=== PATIENT | female | born 2000 | race Caucasian/White ===

== ENCOUNTER 2021-11-14 15:20 | Outpatient (CLI) | payer BC, SELFPAY | END 2021-11-14 15:21 | disposition home or self-care (01) | LOC: AMB 11-26 08:23 | PROVIDERS: Visit Provider Student in an Organized Health Care Education/Training Program | DX: R53.1 Weakness (principal); R42 Dizziness and giddiness | CPT/HCPCS: A0425; A0427 ==

== ENCOUNTER 2021-11-14 15:40 | Emergency (ER) | payer BC, SELFPAY ==
[2021-11-14 15:55] VITALS: PULSE 77; RESP 18; TEMP 36.2; O2SAT 99; BMI 19.9
--- NOTE | 2021-11-14 16:23 | ED.GENADULT ---
HPI - General Adult General Time Seen by Provider: 16:24 Date Seen: 11/14/21 Chief complaint: Syncope/Fainted Stated complaint: Weakness Time Seen by Provider: 11/14/21 16:07 Source: patient Mode of arrival: EMS History of Present Illness HPI narrative: Alba is a 21-year-old female past medical history includes PCOS currently on oral control presents emerged department via EMS with a syncopal episode. Patient is from [place] and goes to [facility], she was unloading her stuff from storage into the door for about 2 hours, she was pushing a car when she got tunnel vision and felt very warm diaphoretic and shaky, she had to sit down. She was able to get to security she feels that she did not pass but almost did. Security called EMS and she was brought to the emergency department. She is very wobbly when she would get up and lightheaded. Patient states this happened once before about 4 years ago, he thought it was due to low iron, and low hemoglobin. They could not figure out why she had a low hemoglobin. Patient's last menstrual period was about 4 months ago, she did have heavier periods in the past. She denies any chest pain or shortness breath prior to the incident, she denies any recent illness, no nausea vomiting, abdominal pain or diarrhea. She denies any urinary complaints. She denies any pain at this time. She still feels slightly lightheaded, but she has not had any headaches, visual changes, focal weakness or numbness. No history of any cardiac problems in the family. no alcohol, smoking or illicit drug use. Patient feels slightly better at this time. Related Data Home Medications Medication Instructions Recorded Confirmed drospirenone 3 mg-ethinyl tab 11/14/21 estradiol 0.03 mg tablet (Ocella) sertraline 25 mg tablet mg 11/14/21 Allergies Allergy/AdvReac Type Severity Reaction Status Date / Time No Known Drug Allergies Allergy Verified 11/14/21 15:58 Review of Systems Status of ROS: Reports: 10 or more systems reviewed and unremarkable except as noted in History and below [facility] Social History Smoking Status: Never smoker Do you use any of these nicotine containing products: None Second hand tobacco smoke exposure: No How often do you have a drink containing alcohol: never How often do you have six or more drinks on one occasion: Never AUDIT-C Alcohol total score: 0 Non-prescribed substance use: denies use service: No Exam Narrative: Exam Narrative: General: No obvious distress sitting comfortably, she is nontoxic in appearance HEENT: Tympanic membranes within normal limits bilaterally oropharynx clear and moist, pupils equal round reactive to light Neck: Supple, full range of motion, no adenopathy Heart: Normal sinus rhythm, S1-S2 Lungs: Clear to auscultation bilaterally Abdomen: Soft nontender, bowel sounds positive Muscle skeletal: +5 strength in her upper and lower extremities Neuro: Alert awake and oriented x3, cranial nerves 2-12 grossly intact Psych: Mood and affect normal Const: Vital Signs, click to edit/add: Vital Signs - 24 hr 11/14/21 15:55 Temperature 97.1 F L Pulse Rate [Left P ulse Oximeter] 77 Respiratory Rate 18 Pulse Oximetry 99 Oxygen Delivery Me thod Room Air Course Course Hospital Course: 4:00 PM: AIDET performed. vitals are normal. Workup will include EKG, orthostatic blood pressure, will obtain a urinalysis, urine test, CBC, CMP, would like to give patient 0.9 normal saline bolus but she states she does not do well with IVs, she was just at drink orally. Vital Signs Vital signs: Initial Vital Signs Temperature 97.1 F L 11/14/21 15:55 Temperature Source Temporal Artery Scan 11/14/21 15:55 Pulse Rate 77 11/14/21 15:55 Respiratory Rate 18 11/14/21 15:55 Pulse Oximetry 99 11/14/21 15:55 Oxygen Delivery Method 11/14/21 15:55 Vital Signs Temperature 97.1 F L 11/14/21 15:55 Pulse Rate 77 11/14/21 15:55 Respiratory Rate 18 11/14/21 15:55 Pulse Oximetry 99 11/14/21 15:55 Oxygen Delivery Method 11/14/21 15:55 Temperature 97.1 F L 11/14/21 15:55 Pulse Rate 77 11/14/21 15:55 Respiratory Rate 18 11/14/21 15:55 Pulse Oximetry 99 11/14/21 15:55 Oxygen Delivery Method 11/14/21 15:55 Medical Decision Making Lab Data Labs: Lab Results 11/14/21 11/14/21 11/14/21 Range/Units 16:47 16:47 17:00 WBC 7.42 (4.50-11.00) K/uL RBC 4.76 (4.00-5.20) m/uL Hgb 13.1 (12.0-16.0) gm/dL Hct 40.5 (33.0-51.0) % MCV 85 (80-100) fL MCH 28 (26-34) pg MCHC 32 (32-36) gm/dL RDW Coeff of Stephanie 13.8 (11.5-15.5) % Plt Count 334 (140-440) K/uL Neut % (Auto) 56.5 (42.0-72.0) % Lymph % (Auto) 36.3 (20-44) % [place] % (Auto) 5.3 (0.0-11.0) % Eos % (Auto) 1.6 (0.0-7.0) % Baso % (Auto) 0.3 (0.0-3.0) % Neut # (Auto) 4.20 (1.7-7.0) K/uL Lymph # (Auto) 2.69 (0.90-2.90) K/uL [place] # (Auto) 0.40 (0.00-0.90) K/UL Eos # (Auto) 0.12 (0.00-0.50) K/uL Baso # (Auto) 0.02 (0.00-0.30) K/uL Abs Immat Gran (auto) 0.00 (0.00-0.30) K/uL Sodium 139 (135-149) mmol/L Potassium 4.0 (3.6-5.1) mmol/L Chloride 106 (96-114) mmol/L Carbon Dioxide 24 (20-32) mmol/L BUN 15 (5-24) mg/dL Creatinine 0.7 (0.5-1.5) mg/dL Estimated Creat Clear 123.93 Estimated GFR 127 ml/min Glucose 134 H (60-115) mg/dL Calcium 9.1 (8.4-10.6) mg/dL Total Bilirubin 0.2 (0.1-1.5) mg/dL AST 19 (12-35) U/L ALT 10 (4-35) U/L Alkaline Phosphatase 66 (40-150) U/L Total Protein 7.3 (6.0-8.3) g/dL Albumin 4.0 (3.3-5.0) g/dL Urine Color Yellow (Yellow) Urine Appearance Clear (Clear) Urine pH 6.0 (5.0-8.5) Ur Specific [place] >= 1.030 (1.000-1.030) Urine Protein Trace A (Negative) Urine Glucose (UA) Negative (Negative) Urine Ketones Negative (Negative) Urine Blood Negative (Negative) Urine Nitrite Negative (Negative) Urine Bilirubin Negative (Negative) Urine Urobilinogen 0.2 (0.2-1.0) Ur Leukocyte Esterase Negative (Negative) Urine RBC 0-2 (0-2) Urine WBC 0-2 (0-5) Ur Squamous Epith Cells Few (None-Few) Urine Bacteria None (None) Urine HCG, Qual Negative (Negative) Discharge Plan Discharge Clinical Impression: Pre-syncope, History of iron deficiency anemia Patient Disposition: Home, Self-Care Condition: Improved Instructions: Near Syncope (ED) Additional Instructions: To follow up with primary care provider in the next 5-7 days. To continue with keeping hydrated during this heat, return if worsening symptoms. Activity Level: No strenuous activity Prescriptions: No Action sertraline 25 mg tablet drospirenone-ethinyl estradiol [Ocella] 3-0.03 mg tablet Stand Alone Forms: [employer] Info Instructions
[2021-11-14 16:53] LABS: Basophils Absolute Auto 0.02 K/uL (0.00-0.30); Basophils Percent Auto 0.3 % (0.0-3.0); Eosinophils Absolute Auto 0.12 K/uL (0.00-0.50); Eosinophils Percent Auto 1.6 % (0.0-7.0); Hematocrit 40.5 % (33.0-51.0); Hemoglobin* 13.1 gm/dL (12.0-16.0); Lymphocytes Absolute Auto 2.69 K/uL (0.90-2.90); Lymphocytes Percent Auto 36.3 % (20-44); Mean Corpuscular HGB Conc 32 gm/dL (32-36); Mean Corpuscular Hemoglobin 28 pg (26-34); Mean Corpuscular Volume 85 fL (80-100); Monocytes Percent Auto 5.3 % (0.0-11.0); Neutrophils Percent Auto 56.5 % (42.0-72.0); Platelet Count* 334 K/uL (140-440); RDW Coefficient of Variation % 13.8 % (11.5-15.5); Red Blood Count 4.76 m/uL (4.00-5.20); White Blood Count* 7.42 K/uL (4.50-11.00)
[2021-11-14 16:54] LABS: Slide Review Reflex No
[2021-11-14 17:06] LABS: Chloride* 106 mmol/L (96-114); Sodium* 139 mmol/L (135-149)
[2021-11-14 17:08] LABS: Creatinine* 0.7 mg/dL (0.5-1.5); Est. Creatinine Clearance* 123.93; Estimated Glomerular Filt Rate 127 ml/min
[2021-11-14 17:09] LABS: Alanine Aminotransferase* 10 U/L (4-35); Alkaline Phosphatase* 66 U/L (40-150); Aspartate Amino Transferase* 19 U/L (12-35); Bilirubin Total* 0.2 mg/dL (0.1-1.5); Blood Urea Nitrogen* 15 mg/dL (5-24); Calcium* 9.1 mg/dL (8.4-10.6); Carbon Dioxide* 24 mmol/L (20-32); Glucose* 134 mg/dL (60-115); Total Protein* 7.3 g/dL (6.0-8.3)
[2021-11-14 17:11] LABS: Appearance Urine Clear (Clear); Bilirubin Urine Negative (Negative); Blood Urine Negative (Negative); Color Urine Yellow (Yellow); Glucose Urine Negative (Negative); Ketones Urine Negative (Negative); Leukocyte Esterase Urine Negative (Negative); Nitrite Urine Negative (Negative); Protein Urine Trace (Negative); Specific Gravity Urine >= 1.030 (1.000-1.030); Urobilinogen Urine 0.2 (0.2-1.0)
[2021-11-14 17:44] LABS: RBC Urine 0-2 (0-2); Squamous Epithelial Cell Urine Few (None-Few); WBC Urine 0-2 (0-5)
[2021-11-14 17:55] LABS: Ur HCG Qualitative* Negative (Negative)
== END 2021-11-14 18:06 | disposition home or self-care (01) ==
PROVIDERS: Emergency Provider Student in an Organized Health Care Education/Training Program
DX: R55 Syncope and collapse (principal)
CPT/HCPCS: 36415; 80053; 81003; 81015; 81025; 85025; 93005; 99283

== ENCOUNTER 2021-12-20 10:20 | Outpatient (CLI) | payer BC, SELFPAY ==
[2021-12-20 14:54] LABS: Chlamydia DNA Amplified* NOT DETECTED (No Detected); GC DNA Amplified* NOT DETECTED (No Detected)
== END 2021-12-20 10:21 | disposition home or self-care (01) ==
LOC: NFLDREF 10:20
PROVIDERS: Visit Provider Registered Nurse
DX: Z01.419 Encounter for gynecological examination (general) (routine) without abnormal findings (principal); Z11.3 Encounter for screening for infections with a predominantly sexual mode of transmission
CPT/HCPCS: 87491; 87591

== ENCOUNTER 2022-06-25 15:44 | Outpatient (CLI) | payer BC, SELFPAY ==
[2022-06-25 18:07] LABS: Chlamydia DNA Amplified* NOT DETECTED (No Detected); GC DNA Amplified* NOT DETECTED (No Detected)
== END 2022-06-25 15:45 | disposition home or self-care (01) ==
LOC: NFLDREF 15:44
PROVIDERS: Visit Provider Registered Nurse
DX: Z11.3 Encounter for screening for infections with a predominantly sexual mode of transmission (principal)
CPT/HCPCS: 0353U; 87491; 87591

== ENCOUNTER 2022-06-27 14:41 | Outpatient (CLI) | payer BC, SELFPAY ==
--- NOTE | 2022-06-27 15:00 | CRLHL7_ITS ---
For Patients: As a result of the Century Cures Act, medical imaging exams and procedure reports are released immediately into your electronic medical record. You may view this report before your referring provider. If you have questions, please contact your health care provider. CLINICAL HISTORY: Pelvic pain TECHNIQUE: 2D guido scale ultrasound. In addition color Doppler and spectral Doppler analysis was performed of the pelvis using a transabdominal and transvaginal approach. Comparison 08/01/2020 FINDINGS: On transvaginal imaging, the myometrium has a normal uniform echotexture. The uterus measures 8.0 x 4.2 x 3.0 cm. The endometrial lining appears normal and measures 4 mm in thickness. The right ovary measures 3.6 x 1.5 x 1.3 cm in size and the left ovary measures 3.0 x 1.6 x 1.2 cm. The ovaries demonstrate normal arterial and venous blood flow on color Doppler and spectral Doppler analysis. There are no suspicious fluid collections within the cul-de-sac. IMPRESSION: Normal pelvic ultrasound. No ovarian cysts. Dictated by Anjel Clark MD @ 06/29/2022 12:30:28 PM (Electronically Signed)
== END 2022-06-27 14:42 | disposition home or self-care (01) ==
LOC: US 14:42
PROVIDERS: Visit Provider Registered Nurse
DX: R10.2 Pelvic and perineal pain (principal)
CPT/HCPCS: 76830; 76856; 93976